=== PATIENT | male | born 1980 | race Caucasian/White ===

== ENCOUNTER 2018-07-16 15:12 | Emergency (ER) | payer SELFPAY ==
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
== END 2018-07-16 18:00 | disposition home or self-care (01) ==
LOC: ER 15:12
DX: S02.2XXA Fracture of nasal bones, initial encounter for closed fracture (principal); S09.90XA Unspecified injury of head, initial encounter; G44.1 Vascular headache, not elsewhere classified; G44.309 Post-traumatic headache, unspecified, not intractable; Z59.0 Homelessness; Z88.0 Allergy status to penicillin; X58.XXXA Exposure to other specified factors, initial encounter; Y93.89 Activity, other specified; Y92.89 Other specified places as the place of occurrence of the external cause; Y99.8 Other external cause status
CPT/HCPCS: 70450-TC; 70486-TC; 72125-TC; Z7502